=== PATIENT | female | born 1975 | race Two or more races ===

== ENCOUNTER 2025-01-06 09:05 | Day surgery (SDC) | payer OTHER, SELFPAY ==
[2025-01-06] VITALS (13 sets, daily range): BP systolic 118–163; BP diastolic 79–104; PULSE 78–97; RESP 16–22; TEMP 36.2–36.8; O2SAT 97–100; BMI 44.6
[2025-01-06] MEDS: SODIUM CHLORIDE 0.9% 500 ML 500 ML 20 ML IV (10:56)
[2025-01-06] MEDS: ONDANSETRON INJ 2 MG/ML INJ 2 ML 4 MG IV (11:01)
[2025-01-06] MEDS: DiphenhydrAMINE INJ 50 MG/ML VIAL 25 MG IV (11:01)
[2025-01-06] MEDS: fentaNYL CIT INJ 50 mCg/ML AMP 2ML (ASD USE ONLY) IV (11:03)
[2025-01-06] MEDS: MEPERIDINE INJ 25 MG/ML VIAL (ASD USE ONLY) 50 MG IV (11:21)
[2025-01-06] MEDS: MIDAZOLAM INJ 1 MG/ML VIAL 2 ML (ASD USE ONLY) 2 MG IV (11:25)
== END 2025-01-06 12:15 | disposition home or self-care (01) ==
PROVIDERS: PCP Family Medicine; Referring Provider Specialist; Visit Provider Specialist
PROC: 0DBE8ZX Excision of Large Intestine, Via Natural or Artificial Opening Endoscopic, Diagnostic (ICD-10-PCS; CPT 45380; principal; 2025-01-06 09:45)
PROC: (CPT 43239; 2025-01-06 09:45)
DX: K52.9 Noninfective gastroenteritis and colitis, unspecified (principal); E11.9 Type 2 diabetes mellitus without complications; I10 Essential (primary) hypertension; Z79.899 Other long term (current) drug therapy; K63.89 Other specified diseases of intestine; K62.89 Other specified diseases of anus and rectum; K64.9 Unspecified hemorrhoids; K57.30 Diverticulosis of large intestine without perforation or abscess without bleeding; K29.50 Unspecified chronic gastritis without bleeding
CPT/HCPCS: 45380; 81025; A4649; J1200; J2175; J2250; J2405; J3010; J7040